=== PATIENT | male | born 1955 | race Caucasian/White ===

== ENCOUNTER 2023-03-01 16:19 | Inpatient (IN) | payer MEDICAID ==
[~2023-03-01] VITALS: Ht 172.7 cm; Wt 72.6 kg
[~2023-03-01 16:19] MED LIST: AMIN30LI2 PO; BISA10SU11 RC; CRAN400C PO; DOCU100C36 PO; LORA-259 PO; MAGN400O6 PO; NA P133E RC; PANT40TA49 PO; TRIA80CR12 TP; TYL2T PO
[2023-03-01 18:18] VITALS: O2SAT 96
[2023-03-01 18:50] LABS: BASOPHILS % (AUTO) 0.2 % (0.0-2.0); EOSINOPHILS % (AUTO) 0.1 % (0.0-6.0); HEMATOCRIT 46 % (39-51); LYMPHOCYTES # (AUTO) 1.3 K/uL (0.8-4.8); MEAN CORPUSCULAR HEMOGLOBIN 28 PG (26.0-33.0); MEAN CORPUSCULAR HGB CONC 33 g/dl (31.0-36.0); MEAN CORPUSCULAR VOLUME 87 fL (80-96); MONOCYTES # (AUTO) 1.4 K/uL (0.1-1.30); MONOCYTES % (AUTO) 13.4 % (2.0-12.0); NEUTROPHILS # (AUTO) 7.5 K/uL (1.8-8.9); NEUTROPHILS % (AUTO) 73.3 % (43.0-81.0); PLATELET COUNT (AUTO) 177 K/uL (150-450); RED BLOOD CELL COUNT(AUTO) 5.26 MIL/uL (4.5-6.0); RED CELL DISTRIBUTION WIDTH 14.6 % (11.5-15.0); WHITE BLOOD COUNT (AUTO) 10.2 K/uL (4.3-11.0)
[2023-03-01 19:18] LABS: ALBUMIN 3.8 g/dL (3.4-5.0); BILIRUBIN,DIRECT 0.2 mg/dL (0.0-0.2); BILIRUBIN,TOTAL 0.8 mg/dL (0.2-1.0); CALCIUM, SERUM 9.3 mg/dL (8.5-10.1); POTASSIUM 3.6 mmol/L (3.5-5.1); TOTAL PROTEIN, SERUM 8.4 g/dL (6.4-8.2)
[2023-03-01 19:42] LABS: SALICYLATE 0.4 mg/dL (2.8-20.0)
[2023-03-01 19:51] LABS: APPEARANCE,URINE CLEAR (CLEAR); BILIRUBIN,URINE 1+ (NEGATIVE); BLOOD, URINE TRACE-INTA Ery/uL (NEGATIVE); COLOR,URINE YELLOW (YELLOW); KETONES,URINE TRACE mg/dL (NEGATIVE); LEUKOCYTE ESTERASE ,URINE NEGATIVE (NEGATIVE); NITRITE, URINE NEGATIVE (NEGATIVE); PH,URINE 5.5 (5.0-8.0); PROTEIN,URINE NEGATIVE (NEGATIVE); UGLUCOSE NEGATIVE (NEGATIVE); UROBILINOGEN,URINE 0.2 EU/dL (0.2)
[2023-03-01] MEDS ORDERED: IV NS 0.9% 1,000 ML BAG IV ONE (20:00)
[2023-03-01 20:21] LABS: AMPHETAMINE, URINE NEGATIVE (NEGATIVE); BARBITURATE, URINE NEGATIVE (NEGATIVE); BENZODIAZEPINE, URINE NEGATIVE (NEGATIVE); CANNABINOID, URINE NEGATIVE (NEGATIVE); COCCAINE, URINE NEGATIVE (NEGATIVE); OPIATE, URINE NEGATIVE (NEGATIVE); PHENCYCLIDINE SCREEN,URINE NEGATIVE (NEGATIVE)
[2023-03-01 20:40] LABS: ADD URINE CULTURE NO; BACTERIA,URINE None seen /HPF (None Seen); SQUAMOUS EPITHELIAL CELL,UR None Seen /HPF (None Seen); WBC,URINE 0-2 /HPF (0-3)
[2023-03-01] MEDS ORDERED: IV NS 0.9% 1,000 ML IV PRN (21:30)
[2023-03-01] MEDS ORDERED: Z GUARD REMEDY 4 OZ OINT TP PRN (21:30)
[2023-03-01] MEDS ORDERED: LORAZEPAM 0.5 MG TABLET PO PRN (21:30)
[2023-03-01] MEDS ORDERED: TEMAZEPAM 15 MG CAPSULE PO PRN (21:30)
[2023-03-01] MEDS ORDERED: MAG HYDROX/AL HYDROX/SIMETH 30 ML UDC PO PRN (21:30)
[2023-03-01] MEDS ORDERED: MAGNESIUM HYDROXIDE 30 ML UDC PO PRN (21:30)
[2023-03-01] MEDS ORDERED: ACETAMINOPHEN 325 MG TABLET PO PRN (21:30)
[2023-03-01] MEDS ORDERED: ONDANSETRON HCL/PF 4 MG/2 ML VIAL IVP PRN (21:30)
[2023-03-01 22:45] VITALS: BP 106/76; TEMP 97.9; O2SAT 99
[2023-03-02 06:53] LABS: BASOPHILS % (AUTO) 0.2 % (0.0-2.0); EOSINOPHILS # (AUTO) 0.1 K/uL (0.0-0.7); EOSINOPHILS % (AUTO) 1.5 % (0.0-6.0); HEMATOCRIT 40 % (39-51); HEMOGLOBIN 13.4 g/dL (13.5-17.5); LYMPHOCYTES # (AUTO) 1.2 K/uL (0.8-4.8); LYMPHOCYTES % (AUTO) 14.9 % (20.0-44.0); MEAN CORPUSCULAR HEMOGLOBIN 29 PG (26.0-33.0); MEAN CORPUSCULAR HGB CONC 34 g/dl (31.0-36.0); MEAN CORPUSCULAR VOLUME 86 fL (80-96); MONOCYTES % (AUTO) 12.2 % (2.0-12.0); NEUTROPHILS # (AUTO) 5.7 K/uL (1.8-8.9); NEUTROPHILS % (AUTO) 71.2 % (43.0-81.0); PLATELET COUNT (AUTO) 169 K/uL (150-450); RED BLOOD CELL COUNT(AUTO) 4.58 MIL/uL (4.5-6.0); RED CELL DISTRIBUTION WIDTH 14.6 % (11.5-15.0); WHITE BLOOD COUNT (AUTO) 8.1 K/uL (4.3-11.0)
[2023-03-02 07:20] LABS: CALCIUM, SERUM 8.7 mg/dL (8.5-10.1); CREATININE 1.2 mg/dL (0.6-1.3); MAGNESIUM 2.5 mg/dL (1.8-2.4); PHOSPHORUS 3.3 mg/dL (2.5-4.9); POTASSIUM 3.3 mmol/L (3.5-5.1)
[2023-03-02] MEDS ORDERED: LACT10SO3 PO (07:54)
[2023-03-02] MEDS: PANTOPRAZOLE 40 MG TABLET.DR PO SCH (08:22)
[2023-03-02] MEDS: THIAMINE HCL 100 MG TABLET PO SCH (08:22)
[2023-03-02 09:43] VITALS: BP 105/70; TEMP 98.1; O2SAT 95
[2023-03-02] MEDS ORDERED: POTASSIUM CHLORIDE 20 MEQ TAB.PRT.SR PO ONE (10:00)
[2023-03-02] MEDS: IV LR 1000 ML 1,000 ML IV PRN (10:34)
[2023-03-02] MEDS ORDERED: LACTULOSE 10 G/15 ML UDC (PYXIS) PO PRN (12:30)
[2023-03-02 16:22] VITALS: BP 112/68; TEMP 98.8; O2SAT 94
[2023-03-02] MEDS: DOCUSATE SODIUM 100 MG CAPSULE PO SCH (17:02)
[2023-03-02 20:00] VITALS: BP 143/94; TEMP 98.4; O2SAT 97
[2023-03-03] MEDS: IV LR 1000 ML 1,000 ML IV PRN ×2 (00:33→14:55)
[2023-03-03 07:05] LABS: BASOPHILS % (AUTO) 0.2 % (0.0-2.0); EOSINOPHILS # (AUTO) 0.2 K/uL (0.0-0.7); EOSINOPHILS % (AUTO) 2.4 % (0.0-6.0); HEMATOCRIT 40 % (39-51); HEMOGLOBIN 13.7 g/dL (13.5-17.5); LYMPHOCYTES # (AUTO) 1.5 K/uL (0.8-4.8); LYMPHOCYTES % (AUTO) 18.3 % (20.0-44.0); MEAN CORPUSCULAR HEMOGLOBIN 29 PG (26.0-33.0); MEAN CORPUSCULAR HGB CONC 34 g/dl (31.0-36.0); MEAN CORPUSCULAR VOLUME 86 fL (80-96); MONOCYTES # (AUTO) 0.8 K/uL (0.1-1.30); MONOCYTES % (AUTO) 9.9 % (2.0-12.0); NEUTROPHILS # (AUTO) 5.5 K/uL (1.8-8.9); NEUTROPHILS % (AUTO) 69.2 % (43.0-81.0); PLATELET COUNT (AUTO) 168 K/uL (150-450); RED BLOOD CELL COUNT(AUTO) 4.68 MIL/uL (4.5-6.0); RED CELL DISTRIBUTION WIDTH 14.2 % (11.5-15.0); WHITE BLOOD COUNT (AUTO) 7.9 K/uL (4.3-11.0)
[2023-03-03 07:26] LABS: CALCIUM, SERUM 8.5 mg/dL (8.5-10.1); POTASSIUM 3.6 mmol/L (3.5-5.1)
[2023-03-03 07:30] VITALS: BP 153/100; TEMP 98.8; O2SAT 97
[2023-03-03 07:32] LABS: MAGNESIUM 2.1 mg/dL (1.8-2.4); PHOSPHORUS 2.9 mg/dL (2.5-4.9)
[2023-03-03] MEDS: PANTOPRAZOLE 40 MG TABLET.DR PO SCH (08:25)
[2023-03-03] MEDS: THIAMINE HCL 100 MG TABLET PO SCH (08:25)
[2023-03-03] MEDS ORDERED: LORAZEPAM 0.5 MG TABLET PO PRN (11:30)
[2023-03-03] MEDS ORDERED: OLANZAPINE 2.5 MG TABLET PO PRN (13:30)
[2023-03-03] MEDS: OLANZAPINE 2.5 MG TABLET PO SCH ×3 (13:30→21:06)
[2023-03-03 16:00] VITALS: BP 162/103; TEMP 98.6; O2SAT 97
[2023-03-03] MEDS: DOCUSATE SODIUM 100 MG CAPSULE PO SCH (17:01)
[2023-03-03 20:00] VITALS: BP 165/106; TEMP 98.7; O2SAT 96
[2023-03-04] MEDS: IV LR 1000 ML 1,000 ML IV PRN (03:50)
[2023-03-04 07:10] LABS: BASOPHILS % (AUTO) 0.2 % (0.0-2.0); EOSINOPHILS # (AUTO) 0.2 K/uL (0.0-0.7); HEMATOCRIT 42 % (39-51); HEMOGLOBIN 14.4 g/dL (13.5-17.5); LYMPHOCYTES # (AUTO) 1.4 K/uL (0.8-4.8); LYMPHOCYTES % (AUTO) 17.6 % (20.0-44.0); MEAN CORPUSCULAR HEMOGLOBIN 29 PG (26.0-33.0); MEAN CORPUSCULAR HGB CONC 34 g/dl (31.0-36.0); MEAN CORPUSCULAR VOLUME 85 fL (80-96); MONOCYTES # (AUTO) 0.8 K/uL (0.1-1.30); NEUTROPHILS # (AUTO) 5.3 K/uL (1.8-8.9); NEUTROPHILS % (AUTO) 69.2 % (43.0-81.0); PLATELET COUNT (AUTO) 173 K/uL (150-450); RED BLOOD CELL COUNT(AUTO) 4.96 MIL/uL (4.5-6.0); RED CELL DISTRIBUTION WIDTH 14.1 % (11.5-15.0); WHITE BLOOD COUNT (AUTO) 7.7 K/uL (4.3-11.0)
[2023-03-04 07:30] VITALS: BP 158/114; TEMP 98.6; O2SAT 98
[2023-03-04 07:35] LABS: ALBUMIN 3.1 g/dL (3.4-5.0); BILIRUBIN,TOTAL 0.9 mg/dL (0.2-1.0); CALCIUM, SERUM 8.8 mg/dL (8.5-10.1); MAGNESIUM 1.9 mg/dL (1.8-2.4); POTASSIUM 3.4 mmol/L (3.5-5.1); TOTAL PROTEIN, SERUM 7.4 g/dL (6.4-8.2)
[2023-03-04 07:49] LABS: THYROID STIMULATING HORMONE 2.293 uIU/mL (0.358-3.74)
[2023-03-04] MEDS: THIAMINE HCL 100 MG TABLET PO SCH (08:05)
[2023-03-04] MEDS: OLANZAPINE 2.5 MG TABLET PO SCH (08:05)
[2023-03-04] MEDS: PANTOPRAZOLE 40 MG TABLET.DR PO SCH (08:05)
[2023-03-04] MEDS ORDERED: POTASSIUM CHLORIDE 20 MEQ TAB.PRT.SR PO SCH (10:00)
[2023-03-04] MEDS ORDERED: AMLODIPINE BESYLATE 2.5 MG TABLET PO SCH (11:00)
[2023-03-04 16:00] VITALS: BP 161/100; TEMP 99.4; O2SAT 99
[2023-03-04] MEDS: DOCUSATE SODIUM 100 MG CAPSULE PO SCH (17:09)
[2023-03-04 17:51] VITALS: BP 162/100
[2023-03-04] MEDS ORDERED: CLONIDINE HCL 0.1 MG TABLET PO ONE (18:00)
== END 2023-03-04 19:00 | DRG 469 ==
LOC: ER 16:20 → MED 21:51
PROVIDERS: ADMIT Nurse Practitioner Acute Care; ATTEND Nurse Practitioner Family
DX: N17.0 Acute kidney failure with tubular necrosis (principal); G93.41 Metabolic encephalopathy; E87.29 Other acidosis; E83.41 Hypermagnesemia; E87.8 Other disorders of electrolyte and fluid balance, not elsewhere classified; K74.60 Unspecified cirrhosis of liver; E86.0 Dehydration; I10 Essential (primary) hypertension; E87.5 Hyperkalemia; F17.210 Nicotine dependence, cigarettes, uncomplicated; F10.21 Alcohol dependence, in remission; Z20.822 Contact with and (suspected) exposure to COVID-19; F29 Unspecified psychosis not due to a substance or known physiological condition
CPT/HCPCS: 36415; 70450-TC; 76770-TC; 80048-TC; 80053-TC; 80076-TC; 81001; 82140-TC; 82607-TC; 83735-TC; 83921; 84100-TC; 84443-TC; 84484-TC; 85025-TC; 87081-TC; A4223; G0378; G0480; J7030; J7120

== ENCOUNTER 2024-05-13 05:11 | Inpatient (IN) | payer MEDICAID ==
[~2024-05-13] VITALS: Ht 162.6 cm; Wt 73.9 kg
[~2024-05-13 05:11] MED LIST changes: -AMIN30LI2 PO; +LACT10SO3 PO; -PANT40TA49 PO; -TRIA80CR12 TP
[2024-05-13 06:09] LABS: BASOPHILS % (AUTO) 0.3 % (0.0-2.0); EOSINOPHILS % (AUTO) 0.1 % (0.0-6.0); HEMATOCRIT 45 % (39-51); HEMOGLOBIN 15.4 g/dL (13.5-17.5); LYMPHOCYTES # (AUTO) 1.1 K/uL (0.8-4.8); LYMPHOCYTES % (AUTO) 10.7 % (20.0-44.0); MEAN CORPUSCULAR HEMOGLOBIN 29 PG (26.0-33.0); MEAN CORPUSCULAR HGB CONC 34 g/dl (31.0-36.0); MEAN CORPUSCULAR VOLUME 85 fL (80-96); MONOCYTES % (AUTO) 10.2 % (2.0-12.0); NEUTROPHILS # (AUTO) 7.8 K/uL (1.8-8.9); NEUTROPHILS % (AUTO) 78.7 % (43.0-81.0); PLATELET COUNT (AUTO) 160 K/uL (150-450); RED BLOOD CELL COUNT(AUTO) 5.25 MIL/uL (4.5-6.0); RED CELL DISTRIBUTION WIDTH 13.4 % (11.5-15.0); WHITE BLOOD COUNT (AUTO) 9.9 K/uL (4.3-11.0)
[2024-05-13 06:17] LABS: SERUM AMMONIA 25 umol/L (11-32)
[2024-05-13 06:25] LABS: INR 1.06 (0.91-1.10); PARTIAL THROMBOPLASTIN TIME 31.2 SEC (24.3-34.3); PROTHROMBIN TIME 11.2 SECS (9.2-11.1)
[2024-05-13 06:28] LABS: APPEARANCE,URINE CLEAR (CLEAR); BILIRUBIN,URINE NEGATIVE (NEGATIVE); BLOOD, URINE 2+ Ery/uL (NEGATIVE); COLOR,URINE YELLOW (YELLOW); KETONES,URINE NEGATIVE (NEGATIVE); LEUKOCYTE ESTERASE ,URINE NEGATIVE (NEGATIVE); NITRITE, URINE NEGATIVE (NEGATIVE); PROTEIN,URINE NEGATIVE (NEGATIVE); UGLUCOSE NEGATIVE (NEGATIVE); UROBILINOGEN,URINE 0.2 EU/dL (0.2)
[2024-05-13 06:35] LABS: WBC,URINE 0-2 /HPF (0-3)
[2024-05-13 06:36] LABS: ADD URINE CULTURE NO; BACTERIA,URINE Rare /HPF (None Seen); SQUAMOUS EPITHELIAL CELL,UR 0-2 /HPF (None Seen)
[2024-05-13] MEDS ORDERED: LORAZEPAM INJ 2 MG/ML VIAL ONE (06:41)
[2024-05-13] MEDS ORDERED: CEFEPIME 1 GM VIAL ONE (06:41)
[2024-05-13 06:43] LABS: AMPHETAMINE, URINE NEGATIVE (NEGATIVE); BARBITURATE, URINE NEGATIVE (NEGATIVE); BENZODIAZEPINE, URINE NEGATIVE (NEGATIVE); CANNABINOID, URINE NEGATIVE (NEGATIVE); COCCAINE, URINE NEGATIVE (NEGATIVE); OPIATE, URINE NEGATIVE (NEGATIVE); PHENCYCLIDINE SCREEN,URINE NEGATIVE (NEGATIVE)
[2024-05-13 06:43] LABS: ALANINE AMINOTRANSFERASE 15 U/L (12-78); ALBUMIN 4.1 g/dL (3.4-5.0); ALKALINE PHOSPHATASE 115 U/L (46-116); ASPARTATE AMINOTRANSFERASE 23 U/L (15-37); BILIRUBIN,DIRECT 0.4 mg/dL (0.0-0.2); BILIRUBIN,TOTAL 1.5 mg/dL (0.2-1.0); CALCIUM, SERUM 8.8 mg/dL (8.5-10.1); CARBON DIOXIDE 19 mmol/L (21-32); CHLORIDE 86 mmol/L (98-107); CREATININE 1.3 mg/dL (0.6-1.3); GLUCOSE 125 mg/dL (74-106); POTASSIUM 3.5 mmol/L (3.5-5.1); TOTAL PROTEIN, SERUM 8.2 g/dL (6.4-8.2); UREA NITROGEN, BLOOD 9 mg/dL (7-18)
[2024-05-13 06:45] LABS: ALCOHOL, BLOOD < 3 mg/dL (0-10); SODIUM SERUM 120 mmol/L (136-145)
[2024-05-13] MEDS: LORAZEPAM INJ 2 MG/ML VIAL IV ONE (07:00)
[2024-05-13] MEDS: IV NS 0.9% 1,000 ML BAG IV ONE (07:00)
[2024-05-13 07:17] LABS: LACTIC ACID 2.6 mmol/L (0.4-2.0)
[2024-05-13] MEDS: CEFEPIME 1 GM in IV D5W 50 ML IV ONE (07:22)
[2024-05-13] MEDS ORDERED: LEVE500T20 PO (08:42)
[2024-05-13] MEDS ORDERED: LORA-258 PO (08:42)
[2024-05-13] MEDS ORDERED: PANT40TA49 PO (08:42)
[2024-05-13] MEDS ORDERED: CRAN300T PO (08:42)
[2024-05-13] MEDS ORDERED: AMLO2.5T4 PO (08:42)
[2024-05-13] MEDS ORDERED: CLOT15CR27 TP (08:42)
[2024-05-13] MEDS ORDERED: MAG HYDROX/AL HYDROX/SIMETH 30 ML UDC PO PRN (10:30)
[2024-05-13] MEDS ORDERED: IV NS 0.9% 1,000 ML IV PRN (10:30)
[2024-05-13] MEDS ORDERED: ONDANSETRON HCL/PF 4 MG/2 ML VIAL IVP PRN (10:30)
[2024-05-13] MEDS ORDERED: MAGNESIUM HYDROXIDE 30 ML UDC PO PRN (10:30)
[2024-05-13] MEDS ORDERED: Z GUARD REMEDY 4 OZ OINT TP PRN (10:30)
[2024-05-13] MEDS ORDERED: ACETAMINOPHEN 325 MG TABLET PO PRN (10:30)
[2024-05-13] MEDS: LORAZEPAM 1 MG TABLET PO PRN (11:28)
[2024-05-13] MEDS: IV NS 0.9% 1,000 ML IV PRN (14:22)
[2024-05-13 15:45] LABS: CALCIUM, SERUM 8.3 mg/dL (8.5-10.1); CREATININE 1.2 mg/dL (0.6-1.3); POTASSIUM 4.3 mmol/L (3.5-5.1)
[2024-05-13 15:47] LABS: MAGNESIUM 2.1 mg/dL (1.8-2.4); PHOSPHORUS 3.2 mg/dL (2.5-4.9)
[2024-05-13 15:59] LABS: THYROID STIMULATING HORMONE 1.55 uIU/mL (0.358-3.74); URIC ACID 6.7 mg/dL (2.6-7.2)
[2024-05-13 16:00] VITALS: BP 130/84; TEMP 98.6; O2SAT 98
[2024-05-13] MEDS: risperiDONE 1 MG TABLET PO SCH (16:42)
[2024-05-13] MEDS ORDERED: DESMOPRESSIN 4 MCG/ML AMPUL SQ SCH (17:30)
[2024-05-13] MEDS: IV D5W 1,000 ML IV ONE (17:50)
[2024-05-13] MEDS: IV D5W 1,000 ML IV SCH (19:18)
[2024-05-13] MEDS: DESMOPRESSIN 4 MCG/ML AMPUL IV ONE (20:27)
[2024-05-13 21:21] LABS: CALCIUM, SERUM 8.9 mg/dL (8.5-10.1); CREATININE 1.2 mg/dL (0.6-1.3); POTASSIUM 3.8 mmol/L (3.5-5.1)
[2024-05-14] VITALS: BP 122/92; TEMP 98.4; O2SAT 98
[2024-05-14 04:08] LABS: BASOPHILS % (AUTO) 0.2 % (0.0-2.0); EOSINOPHILS # (AUTO) 0.1 K/uL (0.0-0.7); EOSINOPHILS % (AUTO) 1.8 % (0.0-6.0); HEMATOCRIT 36 % (39-51); HEMOGLOBIN 11.9 g/dL (13.5-17.5); LYMPHOCYTES # (AUTO) 0.8 K/uL (0.8-4.8); LYMPHOCYTES % (AUTO) 15.1 % (20.0-44.0); MEAN CORPUSCULAR HEMOGLOBIN 30 PG (26.0-33.0); MEAN CORPUSCULAR HGB CONC 33 g/dl (31.0-36.0); MEAN CORPUSCULAR VOLUME 89 fL (80-96); MONOCYTES # (AUTO) 0.9 K/uL (0.1-1.30); MONOCYTES % (AUTO) 17.6 % (2.0-12.0); NEUTROPHILS # (AUTO) 3.4 K/uL (1.8-8.9); NEUTROPHILS % (AUTO) 65.3 % (43.0-81.0); PLATELET COUNT (AUTO) 130 K/uL (150-450); RED BLOOD CELL COUNT(AUTO) 4.04 MIL/uL (4.5-6.0); RED CELL DISTRIBUTION WIDTH 13.8 % (11.5-15.0); WHITE BLOOD COUNT (AUTO) 5.2 K/uL (4.3-11.0)
[2024-05-14 06:13] LABS: ANISOCYTOSIS 1+; BAND % (MANUAL) 1 % (0.0-5.0); BASOPHILS % (MANUAL) 0 % (0.0-2.0); EOSINOPHILS % (MANUAL) 3 % (0-4); LYMPHOCYTES % (MANUAL) 24 % (16-48); MONOCYTES % (MANUAL) 14 % (0-11.0); NEUTROPHILS % (MANUAL) 58 (42-76); PLATELET ESTIMATE DECREASED
[2024-05-14 08:00] VITALS: BP 130/67; TEMP 97.7; O2SAT 98
[2024-05-14 09:33] LABS: CALCIUM, SERUM 8.9 mg/dL (8.5-10.1); PHOSPHORUS 2.7 mg/dL (2.5-4.9); POTASSIUM 3.2 mmol/L (3.5-5.1)
[2024-05-14] MEDS ORDERED: LORAZEPAM 0.5 MG TABLET PO PRN (10:30)
[2024-05-14] MEDS ORDERED: BISACODYL SUPP (10 MG) 10 MG/SUPP.RECT SUPP.RECT RC PRN (10:30)
[2024-05-14] MEDS ORDERED: NA PHOS,M-B/NA PHOS,DI-BA 1 EA ENEMA RC PRN (10:30)
[2024-05-14] MEDS ORDERED: LACTULOSE 10 G/15 ML UDC (PYXIS) PO PRN (11:00)
[2024-05-14 16:00] VITALS: BP 119/83; TEMP 97.7; O2SAT 98
[2024-05-14] MEDS: DOCUSATE SODIUM 100 MG CAPSULE PO SCH (18:02)
[2024-05-14] MEDS: LEVETIRACETAM (250 MG) 250 MG TABLET PO SCH (18:02)
[2024-05-14] MEDS: IV D5W 1,000 ML IV PRN (20:15)
[2024-05-15] VITALS: BP 125/87; TEMP 98.4; O2SAT 99
[2024-05-15 07:55] LABS: BASOPHILS % (AUTO) 0.1 % (0.0-2.0); EOSINOPHILS # (AUTO) 0.3 K/uL (0.0-0.7); EOSINOPHILS % (AUTO) 3.5 % (0.0-6.0); HEMATOCRIT 42 % (39-51); HEMOGLOBIN 14.4 g/dL (13.5-17.5); LYMPHOCYTES # (AUTO) 1.6 K/uL (0.8-4.8); LYMPHOCYTES % (AUTO) 19.9 % (20.0-44.0); MEAN CORPUSCULAR HEMOGLOBIN 29 PG (26.0-33.0); MEAN CORPUSCULAR HGB CONC 34 g/dl (31.0-36.0); MEAN CORPUSCULAR VOLUME 86 fL (80-96); MONOCYTES % (AUTO) 12.9 % (2.0-12.0); NEUTROPHILS % (AUTO) 63.6 % (43.0-81.0); PLATELET COUNT (AUTO) 170 K/uL (150-450); RED BLOOD CELL COUNT(AUTO) 4.93 MIL/uL (4.5-6.0); RED CELL DISTRIBUTION WIDTH 13.6 % (11.5-15.0); WHITE BLOOD COUNT (AUTO) 7.9 K/uL (4.3-11.0)
[2024-05-15 07:55] LABS: ALBUMIN 3.4 g/dL (3.4-5.0); BILIRUBIN,DIRECT 0.3 mg/dL (0.0-0.2); BILIRUBIN,TOTAL 0.8 mg/dL (0.2-1.0); CALCIUM, SERUM 8.4 mg/dL (8.5-10.1); CREATININE 1.4 mg/dL (0.6-1.3); POTASSIUM 3.5 mmol/L (3.5-5.1); TOTAL PROTEIN, SERUM 7.3 g/dL (6.4-8.2)
[2024-05-15 08:00] VITALS: BP 144/88; TEMP 98.4; O2SAT 99
[2024-05-15] MEDS: PANTOPRAZOLE 40 MG TABLET.DR PO SCH (08:45)
[2024-05-15] MEDS: AMLODIPINE BESYLATE 2.5 MG TABLET PO SCH (08:45)
[2024-05-15] MEDS: IV NS 0.9% 1,000 ML IV ONE (12:05)
[2024-05-15 16:00] VITALS: BP 133/83; TEMP 97.7; O2SAT 100
[2024-05-15 20:00] VITALS: BP 151/70; TEMP 97.7; O2SAT 98
[2024-05-16] VITALS: BP 135/89; TEMP 98.6; O2SAT 98
[2024-05-16 04:00] VITALS: BP 119/85; TEMP 98.1; O2SAT 96
[2024-05-16 08:00] VITALS: BP 136/92; TEMP 98.4; O2SAT 97
[2024-05-16] MEDS ORDERED: RISP1TAB7 PO (10:52)
[2024-05-16 12:00] VITALS: BP 128/91; TEMP 98.2; O2SAT 94
== END 2024-05-16 15:11 | DRG 426 ==
LOC: ER 05:15 → TELE1 07:22
PROVIDERS: ADMIT Internal Medicine; ATTEND Internal Medicine
PROC: 05HA33Z Insertion of Infusion Device into Left Brachial Vein, Percutaneous Approach (ICD-10-PCS; principal; 2024-05-14)
PROC: B54NZZA Ultrasonography of Left Upper Extremity Veins, Guidance (ICD-10-PCS; 2024-05-14)
DX: E87.1 Hypo-osmolality and hyponatremia (principal); G93.41 Metabolic encephalopathy; K76.82 Hepatic encephalopathy; E87.20 Acidosis, unspecified; E83.9 Disorder of mineral metabolism, unspecified; F05 Delirium due to known physiological condition; F29 Unspecified psychosis not due to a substance or known physiological condition; I10 Essential (primary) hypertension; K74.60 Unspecified cirrhosis of liver; E87.70 Fluid overload, unspecified; F10.21 Alcohol dependence, in remission; F41.9 Anxiety disorder, unspecified; N17.9 Acute kidney failure, unspecified; R41.9 Unspecified symptoms and signs involving cognitive functions and awareness; R63.1 Polydipsia
CPT/HCPCS: 36415; 70450-TC; 71045-TC; 80048-TC; 80076-TC; 81001; 82140-TC; 82533; 82962-TC; 83605-TC; 83735-TC; 83935-TC; 84100-TC; 84295-TC; 84300-TC; 84443-TC; 84484-TC; 84550-TC; 85025-TC; 85730-TC; 87040-TC; 87081-TC; 87086-TC; A4223; G0378; G0480; J0692; J2060; J2597; J7030; J7042; J7060; J7070

== ENCOUNTER 2024-11-29 18:15 | Inpatient (IN) | payer MEDICAID ==
[~2024-11-29] VITALS: Ht 172.7 cm; Wt 73.7 kg
[~2024-11-29 18:15] MED LIST changes: +AMLO2.5T4 PO; +CLOT15CR27 TP; +CRAN300T PO; -CRAN400C PO; +LEVE500T20 PO; +LORA-258 PO; -LORA-259 PO; +PANT40TA49 PO; +RISP1TAB7 PO
[2024-11-29 19:05] LABS: APPEARANCE,URINE CLEAR (CLEAR); BLOOD, URINE NEGATIVE Ery/uL (NEGATIVE); LEUKOCYTE ESTERASE ,URINE NEGATIVE (NEGATIVE); NITRITE, URINE NEGATIVE (NEGATIVE); UGLUCOSE NEGATIVE (NEGATIVE)
[2024-11-29 19:05] LABS: PLATELET COUNT (AUTO) 163 K/uL (150-450); RED BLOOD CELL COUNT(AUTO) 5.12 MIL/uL (4.5-6.0); RED CELL DISTRIBUTION WIDTH 14.3 % (11.5-15.0); WHITE BLOOD COUNT (AUTO) 5.7 K/uL (4.3-11.0)
[2024-11-29 19:15] LABS: CALCIUM, SERUM 8.8 mg/dL (8.5-10.1); CREATININE 1.4 mg/dL (0.6-1.3); SODIUM SERUM 140 mmol/L (136-145); UREA NITROGEN, BLOOD 14 mg/dL (7-18)
[2024-11-29 19:16] LABS: SERUM AMMONIA 17 umol/L (11-32)
[2024-11-29 19:21] LABS: ALCOHOL, BLOOD < 3 mg/dL (0-10); ASPARTATE AMINOTRANSFERASE 14 U/L (15-37); TOTAL PROTEIN, SERUM 6.9 g/dL (6.4-8.2)
[2024-11-29 19:22] LABS: LACTIC ACID 1.7 mmol/L (0.4-2.0)
[2024-11-29 19:28] LABS: AMPHETAMINE, URINE NEGATIVE (NEGATIVE); BARBITURATE, URINE NEGATIVE (NEGATIVE); BENZODIAZEPINE, URINE NEGATIVE (NEGATIVE); CANNABINOID, URINE NEGATIVE (NEGATIVE); COCCAINE, URINE NEGATIVE (NEGATIVE); OPIATE, URINE NEGATIVE (NEGATIVE)
[2024-11-29 22:25] VITALS: BP 99/71; TEMP 97.9; O2SAT 96
[2024-11-29 22:30] VITALS: BP 99/71; TEMP 97.9; O2SAT 96
[2024-11-29] MEDS ORDERED: LACTULOSE 10 G/15 ML UDC (PYXIS) PO PRN (23:30)
[2024-11-29] MEDS ORDERED: ONDANSETRON HCL/PF 4 MG/2 ML VIAL IVP PRN (23:30)
[2024-11-29] MEDS ORDERED: ACETAMINOPHEN 325 MG TABLET PO PRN (23:30)
[2024-11-29] MEDS ORDERED: Z GUARD REMEDY 4 OZ OINT TP PRN (23:30)
[2024-11-30] VITALS: BP 103/73; TEMP 97.9; O2SAT 97
[2024-11-30 06:16] LABS: PLATELET COUNT (AUTO) 170 K/uL (150-450); RED BLOOD CELL COUNT(AUTO) 4.98 MIL/uL (4.5-6.0); RED CELL DISTRIBUTION WIDTH 14.3 % (11.5-15.0); WHITE BLOOD COUNT (AUTO) 5.2 K/uL (4.3-11.0)
[2024-11-30 06:50] LABS: CALCIUM, SERUM 8.6 mg/dL (8.5-10.1); CREATININE 1.5 mg/dL (0.6-1.3); PHOSPHORUS 3.9 mg/dL (2.5-4.9); SODIUM SERUM 142.0 mmol/L (136-145); UREA NITROGEN, BLOOD 13.0 mg/dL (7-18)
[2024-11-30 08:00] VITALS: BP 101/72; TEMP 97.7; O2SAT 96
[2024-11-30] MEDS ORDERED: RISP0.5T65 PO (09:03)
[2024-11-30] MEDS: HEPARIN SODIUM, PORCINE 5000 UNITS/1 ML VIAL SQ SCH (09:03)
[2024-11-30] MEDS ORDERED: MAGNESIUM HYDROXIDE 30 ML UDC PO PRN (09:30)
[2024-11-30] MEDS ORDERED: LORAZEPAM 0.5 MG TABLET PO PRN (09:30)
[2024-11-30] MEDS ORDERED: BISACODYL SUPP (10 MG) 10 MG/SUPP.RECT SUPP.RECT RC PRN (09:30)
[2024-11-30 16:00] VITALS: BP 99/80; TEMP 97.5; O2SAT 96
[2024-11-30] MEDS: LEVETIRACETAM (250 MG) 250 MG TABLET PO SCH (16:16)
[2024-11-30 19:06] LABS: APPEARANCE,URINE CLEAR (CLEAR); BLOOD, URINE NEGATIVE Ery/uL (NEGATIVE); LEUKOCYTE ESTERASE ,URINE NEGATIVE (NEGATIVE); NITRITE, URINE NEGATIVE (NEGATIVE); UGLUCOSE NEGATIVE (NEGATIVE)
[2024-11-30 19:39] LABS: CREATININE, URINE 204.9 MG/DL (30.0-125.0); URINE SODIUM, RANDOM 28.0 mmol/l (40-220); URINE TOTAL PROTEIN 10.0 mg/dL (0-11.9)
[2024-11-30 20:16] LABS: EOSINOPHIL,URINE None Seen
[2024-11-30 20:18] LABS: ADD URINE CULTURE NO; SQUAMOUS EPITHELIAL CELL,UR Few /HPF (None Seen)
[2024-11-30 20:57] VITALS: BP 97/63; TEMP 97.7; O2SAT 95
[2024-11-30] MEDS: OLANZAPINE 10 MG TABLET PO SCH (21:25)
[2024-12-01 06:16] LABS: PLATELET COUNT (AUTO) 160 K/uL (150-450); RED BLOOD CELL COUNT(AUTO) 4.97 MIL/uL (4.5-6.0); RED CELL DISTRIBUTION WIDTH 14.1 % (11.5-15.0); WHITE BLOOD COUNT (AUTO) 5.0 K/uL (4.3-11.0)
[2024-12-01 06:34] LABS: CREATINE KINASE, TOTAL 90.0 U/L (39-308)
[2024-12-01 06:43] LABS: ASPARTATE AMINOTRANSFERASE 11.0 U/L (15-37); CALCIUM, SERUM 8.4 mg/dL (8.5-10.1); CREATININE 1.2 mg/dL (0.6-1.3); PHOSPHORUS 4.0 mg/dL (2.5-4.9); SODIUM SERUM 143.0 mmol/L (136-145); TOTAL PROTEIN, SERUM 6.8 g/dL (6.4-8.2); UREA NITROGEN, BLOOD 16.0 mg/dL (7-18)
[2024-12-01] MEDS: PANTOPRAZOLE 40 MG TABLET.DR PO SCH (07:39)
[2024-12-01] MEDS: OLANZAPINE 2.5 MG TABLET PO SCH (08:09)
[2024-12-01] MEDS: AMLODIPINE BESYLATE 2.5 MG TABLET PO SCH (08:10)
[2024-12-01] MEDS: DOCUSATE SODIUM 100 MG CAPSULE PO SCH (08:10)
[2024-12-01 08:50] VITALS: BP 116/81; TEMP 97.5; O2SAT 98
[2024-12-01 16:15] VITALS: BP 105/64; TEMP 98.4; O2SAT 96
[2024-12-01 20:00] VITALS: BP 92/69; TEMP 98; TEMP 98.2; O2SAT 96
[2024-12-01 22:10] VITALS: BP 108/72
[2024-12-02 06:59] LABS: CALCIUM, SERUM 8.5 mg/dL (8.5-10.1); CREATININE 1.1 mg/dL (0.6-1.3); SODIUM SERUM 146.0 mmol/L (136-145); UREA NITROGEN, BLOOD 14.0 mg/dL (7-18)
[2024-12-02 07:02] LABS: PLATELET COUNT (AUTO) 151 K/uL (150-450); RED BLOOD CELL COUNT(AUTO) 4.85 MIL/uL (4.5-6.0); RED CELL DISTRIBUTION WIDTH 14.6 % (11.5-15.0); WHITE BLOOD COUNT (AUTO) 5.2 K/uL (4.3-11.0)
[2024-12-02 08:00] VITALS: BP 120/80; TEMP 97.5; O2SAT 96
[2024-12-02 08:05] VITALS: BP 120/80
[2024-12-02 08:07] LABS: PTH, INTACT 13 pg/mL (15-65)
== END 2024-12-02 18:14 | DRG 52 ==
LOC: ER 18:18 → TELE 22:01 → MED 23:38
PROVIDERS: ADMIT Nurse Practitioner Family
DX: G93.41 Metabolic encephalopathy (principal); F05 Delirium due to known physiological condition; K74.60 Unspecified cirrhosis of liver; F29 Unspecified psychosis not due to a substance or known physiological condition; G40.909 Epilepsy, unspecified, not intractable, without status epilepticus; N18.9 Chronic kidney disease, unspecified; N17.9 Acute kidney failure, unspecified; F41.9 Anxiety disorder, unspecified; I12.9 Hypertensive chronic kidney disease with stage 1 through stage 4 chronic kidney disease, or unspecified chronic kidney disease; K21.9 Gastro-esophageal reflux disease without esophagitis; Z79.899 Other long term (current) drug therapy; G31.84 Mild cognitive impairment of uncertain or unknown etiology; F10.21 Alcohol dependence, in remission
CPT/HCPCS: 36415; 70450-TC; 71045-TC; 76770-TC; 80048-TC; 80053-TC; 80076-TC; 81001; 82140-TC; 82550-TC; 82570-TC; 83605-TC; 83735-TC; 83970; 84100-TC; 84155; 84165; 84300-TC; 84443-TC; 84484-TC; 85025-TC; 87081-TC; 95819-TC; G0378; G0480; J1644